=== PATIENT | male | born 1985 | race Caucasian/White ===

== ENCOUNTER 2021-05-04 12:18 | Emergency (ER) | payer OTHER ==
[~2021-05-04] VITALS: Ht 180.3 cm; Wt 97.5 kg
--- NOTE | ~2021-05-04 | EMS ---
[facility] [address] [place] [address] EMS Patient Care Report Name: DESTINY ANDREWS Room #: DEP HENRY Wiggins#: [id number] Admission: 05/04/21 Attend Phys: Discharge: 05/04/21 Date of : [birth year] Report #: [id number] THIS REPORT FOR: //name// Report Transmitted: 05/05/2021 11:19 EMS Care Summary [place], [place]/[facility] Incident [id number] @ 05/04/2021 12:00 Incident Location [address] [address] Patient DESTINY ANDREWS Male, 36 Years 1985 Patient Address [address] [address] Patient History Kidney Stone, Patient Allergies Tramadol, Patient Medications None Reported, Chief Complaint right flank pain Disposition Transported No Lights/[place] Dispatch Reason Sick Person Transported To [facility] Narrative Dispatched to an intersection in regards to an abdominal pain. On arrival, I saw patient laying in the right lateral recumbent position on the grass about [address] Initial assessment revealed that patient was A&Ox4 and did not appear to be in respiratory distress. Patient's chief complaint was right [facility] [address] [place] [address] EMS Patient Care Report Name: DESTINY ANDREWS Room #: DEP Rosalie#: [id number] Admission: 05/04/21 Attend Phys: Discharge: 05/04/21 Date of : [birth year] Report #: [id number] flank pain. Patient stated that he has a history of Kidney stones and feels like this pain he is experiencing is the same. Physical assessment revealed that patient was pink warm and dry. Patient was able to ambulate unassisted to our cot. Patient was secured and lifted into the ambulance. Treatment rendered was obtaining a complete set of baseline vital signs. Patient was transported to [facility] and radio report was given en route. Patient care was transferred on arrival. Initial Vitals @12:10P: 61,R: 16,BP: 139/66,Pain: 0/10,GCS: 15,CO: 0,SpO2: 100,Revised Trauma: 12, @12:15P: 63,R: 16,BP: 139/66,Pain: 8/10,GCS: 15,CO: 0,SpO2: 79,Revised Trauma: 12, Assessments @12:09MENTAL:Event Oriented,Place Oriented,Person Oriented,Time Oriented,SKIN:HEENT:LUNG SOUNDS:ABDOMEN:PELVIS//GI:EXTREMITIES:PULSE:NEURO:No Abnormalities, Impression Abdominal Pain Procedures @12:09 ALS Assessment Response: UnchangedSucceeded Timeline 11:58,Call Received 11:58,Dispatch Notified 12:00,Dispatched 12:00,En Route 12:05,On Scene 12:06,At Patient 12:09,ALS Assessment,Response: UnchangedSucceeded, 12:10,BP: 139/66 M,PULSE: 61,RR: 16 R,SPO2: 100 Ox,ETCO2: ,BG: ,PAIN: 0,GCS: 15, 12:10,Depart Scene 12:15,At Destination 12:15,BP: 139/66 M,PULSE: 63,RR: 16 R,SPO2: 79 Ox,ETCO2: ,BG: ,PAIN: 8,GCS: 15, 12:30,Call Closed Disclaimer v1.1 Copyright 2020 [employer] This EMS Care Summary contains data elements from the applicable legal record (which may be displayed differently). It is designed to provide pertinent information for the following purposes: continuity of care, clinical quality, [facility] [address] [place] [address] EMS Patient Care Report Name: DESTINY ANDREWS Room #: [facility]#: [id number] Admission: 05/04/21 Attend Phys: Discharge: 05/04/21 Date of : [birth year] Report #: [id number] and state data reporting. The complete legal record is available to ED staff and administrators of the receiving hospital in [employer]'s Patient Tracker. All data is provided "as is."
[~2021-05-04 12:18] MED LIST: HYDROCODON-ACE1 EAC7 PO; IBUPROFEN 800800 MG PO
[2021-05-04 13:17] LABS: URINE BILIRUBIN NEGATIVE (Negative); URINE BLOOD 3+ (Negative); URINE CLARITY CLEAR; URINE COLOR YELLOW; URINE GLUCOSE-RANDOM* NEGATIVE (Negative); URINE KETONES 1+ (Negative); URINE LEUKOCYTES-REFLEX NEGATIVE (Negative); URINE NITRITE-REFLEX NEGATIVE (Negative); URINE PROTEIN (DIPSTICK) 1+ (Negative); URINE SPECIFIC GRAVITY >= 1.030 (1.005-1.035)
[2021-05-04 13:30] LABS: CASTS None Seen /LPF (None Seen); MUCUS >6 Heavy strn/LPF (None Seen); SQUAMOUS 0-3 Few /LPF (0-3)
[2021-05-04 13:31] LABS: URINE WBC-REFLEX 0-5 Rare /HPF (0-5)
[2021-05-04 13:32] LABS: BACTERIA-REFLEX 1-9 Few /HPF (None Seen); CALCIUM OXALATE 0-3 Few /LPF (None Seen); URINE RBC >20 Many /HPF (NONE SEEN)
[2021-05-04 13:57] LABS: HEMATOCRIT 39.8 % (42.0-52.0); HEMOGLOBIN 13.4 gm/dL (14.0-18.0); MCH 31.2 pg (26.0-34.0); MCHC 33.8 g/dL (28.0-37.0); MCV 92.3 fL (80.0-100.0); RBC 4.31 mil/uL (4.50-6.00); RDW 13.6 % (10.5-14.5); WBC 7.7 thou/uL (4.0-11.0)
[2021-05-04 14:12] LABS: CALCIUM 9.5 mg/dL (8.5-10.1); CREATININE 1.1 mg/dL (0.7-1.3); POTASSIUM 3.7 mmol/L (3.5-5.1)
[2021-05-04 14:16] LABS: ALBUMIN 3.8 g/dL (3.4-5.0); TOTAL BILIRUBIN 0.8 mg/dL (0.2-1.0); TOTAL PROTEIN 8.6 g/dL (6.4-8.2)
[2021-05-04] MEDS ORDERED: NORCO5 PO (14:36)
[2021-05-04] MEDS ORDERED: CEPHALEXIN500 MG PO (14:36)
[2021-05-04] MEDS ORDERED: ZOFRAN ODT4 MG PO (14:36)
[2021-05-04] MEDS ORDERED: FLOMAX0.4 MG PO (14:36)
[2021-05-04 15:07] VITALS: BP 128/67
== END 2021-05-04 15:11 | disposition home or self-care (01) ==
LOC: ER 12:18
PROVIDERS: Nurse Practitioner Family
DX: N20.0 Calculus of kidney (principal); N39.0 Urinary tract infection, site not specified; F17.210 Nicotine dependence, cigarettes, uncomplicated; Z79.891 Long term (current) use of opiate analgesic; Z79.899 Other long term (current) drug therapy; Z88.5 Allergy status to narcotic agent